=== PATIENT | female | born 1975 | race Asian ===

== ENCOUNTER 2016-09-29 09:56 | Emergency (ER) | payer OTHER ==
[~2016-09-29] VITALS: Ht 165.1 cm; Wt 45.0 kg
[2016-09-29 11:07] LABS: HEMATOCRIT 34.6 % (36.0-46.0); MCH 30.8 PG (29.0-34.0); MCHC 33.8 G/DL (30.0-36.0); MCV 91.1 FL (83-99); MEAN PLAT.VOLUME 10.4 uM^3 (9.5-12.4); PLATELET COUNT 164 K/uL (156-360); RBC DIS.WIDTH-CV 12.1 % (11.8-14.6); RBC DIS.WIDTH-SD 39.2 % (39-53); WHITE BLOOD COUNT 12.5 K/uL (4.1-10.2)
[2016-09-29 11:18] LABS: CHLORIDE 106 mEq/L (99-109); POTASSIUM 3.2 mEq/L (3.7-5.4); SODIUM 138 mEq/L (136-147)
[2016-09-29 11:21] LABS: GLUCOSE 124 mg/dL (70-99)
[2016-09-29 11:22] LABS: ANION GAP 11 MEQ/L (2-14)
[2016-09-29 11:23] LABS: TOTAL BILIRUBIN 0.8 mg/dL (0.0-1.0)
[2016-09-29 11:24] LABS: ALKALINE PHOSPHATASE 77 IU/L (3-129); GFR ESTIMATE (CALCULATED) > 59 mL/min/
[2016-09-29 11:25] LABS: UREA NITROGEN (BUN) 11 mg/dL (9-23)
[2016-09-29 11:28] LABS: LIPASE 28 U/L (1.0-51.0)
[2016-09-29 11:34] LABS: QUANTITATIVE HCG < 4.0 MIU/ML
[2016-09-29] MEDS ORDERED: CORICIDIN HBP1 EAC5 PO (11:39)
[2016-09-29 12:14] LABS: INFLUENZA A VIRAL ANTIGEN NEGATIVE; INFLUENZA B VIRAL ANTIGEN NEGATIVE
[2016-09-29 13:07] LABS: ADD MIUA? YES; BILIRUBIN NEGATIVE; BLOOD TRACE; COLOR YELLOW ((YELLOW)); GLUCOSE (STRIP) NEGATIVE; KETONES NEGATIVE; LEUKOCYTES LARGE; NITRITE POSITIVE; PROTEIN (STRIP) NEGATIVE; SPECIFIC GRAVITY 1.016 (1.000-1.030); UROBILINOGEN 0.2 MG/DL (0.2-1.0)
[2016-09-29 13:53] LABS: BACTERIA 3+; CASTS NONE SEEN /LPF; CRYSTALS NONE SEEN; EPITHELIAL CELLS RARE; MUCUS NONE SEEN; RED BLOOD CELLS NONE SEEN /HPF (0-5); UCUL ADDED? YES; WHITE BLOOD CELLS 15-20 /HPF (0-5)
[2016-09-29] MEDS ORDERED: KEFLEX500 MG PO (14:31)
[2016-09-29 16:02] VITALS: BP 93/56
== END 2016-09-29 16:02 | disposition home or self-care (01) ==
LOC: EME 09:56
PROVIDERS: Nurse Practitioner Family
DX: N39.0 Urinary tract infection, site not specified (principal); R50.9 Fever, unspecified; E87.6 Hypokalemia; D72.829 Elevated white blood cell count, unspecified; D64.9 Anemia, unspecified
CPT/HCPCS: 70450; 71020; 80053; 81003; 83605; 83690; 84702; 85027; 87040; 87077; 87086; 87186; 87502; 87801; 99281; 99284; J0696; J1885; J2405; J7030; J7050

== ENCOUNTER 2017-10-14 20:28 | Emergency (ER) | payer OTHER ==
[~2017-10-14] VITALS: Ht 165.1 cm; Wt 50.2 kg
[~2017-10-14 20:28] MED LIST: CORICIDIN HBP1 EAC5 PO; KEFLEX500 MG PO
[2017-10-14] MEDS ORDERED: ZOFRAN ODT8 MG PO (23:05)
[2017-10-14 23:15] VITALS: BP 94/60
== END 2017-10-14 23:21 | disposition home or self-care (01) ==
LOC: EME 20:28
DX: B34.9 Viral infection, unspecified (principal)
CPT/HCPCS: 71046; 87502; 99281; 99284; J7030